=== PATIENT | male | born 1960 | race Caucasian/White ===

== ENCOUNTER → 2017-09-29 06:34 | Outpatient (CLI) | payer OTHER, SELFPAY ==
--- NOTE | 2017-09-29 | DI.MRI.S_ITS ---
PROCEDURE: MR KNEE RT WO CON INDICATIONS: RIGHT KNEE PAIN TECHNIQUE: Noncontrast sagittal PD fast spin echo and T2 fast spin echo with fat saturation, sagittal 3-D FLASH with fat saturation; coronal T1 spin echo and PD fast spin echo with fat saturation, and axial PD fast spin echo with fat saturation through the knee. COMPARISON: None. FINDINGS: Image quality: Diagnostic. Bones and joint: There is no acute fracture or dislocation. No suspicious osseous lesions are evident. There is a small knee joint effusion without associated Sosa's cyst. Lateral patellar subluxation is present. There is irregularity of the hyaline articular cartilage within the patellofemoral compartment with moderate to large full-thickness defects noted on the lateral patellar facet. Developing lateral patellar marginal osteophytes are present. There are areas of degenerative cystic change and reactive marrow edema along the lateral patellar facet. Smaller defects of the hyaline articular cartilage may be present involving the lateral margin of the trochlear groove. The hyaline articular cartilage within the medial and lateral tibiofemoral compartments appears to be within normal limits. Cruciate ligaments: The anterior and posterior cruciate ligaments are intact. Menisci: There is an oblique tear identified involving the junction of the body and posterior horn of the medial meniscus that involves the periphery and extends very close to the femoral articular surface (image 24, series 6). No displaced medial meniscal tears are evident. Degenerative signal along the body and posterior horn is incidentally noted. The lateral meniscus is intact and otherwise within normal limits. Medial structures: The medial collateral ligament is intact. The semimembranosus tendon insertion is intact. The imaged portions of the pes anserinus tendons are unremarkable. No significant fluid is contained within the pes anserinus bursa. Lateral structures: The popliteal tendon is intact. The lateral collateral ligament proper (fibular collateral ligament) and the proximal tibiofibular ligaments are intact. The distal aspect of the biceps femoris tendon and the iliotibial band are intact. Anterior structures: The distal aspect of the quadriceps tendon is within normal limits. The proximal-lateral margin of the patellar tendon is noted to extend over the anterior aspect of the lateral femoral condyle. There is prominent edema within the infrapatellar fat-pad that located at this location. There is thickening and increased signal involving the proximal aspect of this portion of the patellar tendon. IMPRESSION: 1. Small oblique tear involving the junction of the body and posterior horn of the medial meniscus with questionable femoral articular surface involvement. 2. Lateral patellar subluxation with prominent patellofemoral chondromalacia and mild proximal patellar tendinopathy. The lateral margin of the proximal patellar tendon extends over the anterior lateral femoral condyle. Please correlate clinically for lateral femoral condyle-patellar tendon friction syndrome. 3. Small knee joint effusion. Dictated by: Mathew Galarza M.D. on 09/29/2017 at 12:33 Approved by: Mathew Galarza M.D. on 09/29/2017 at 12:38
== END ==
PROVIDERS: Visit Provider Orthopaedic Surgery
DX: S83.241A Other tear of medial meniscus, current injury, right knee, initial encounter (principal); M25.461 Effusion, right knee
CPT/HCPCS: 73721

== ENCOUNTER 2017-12-11 06:35 | Day surgery (SDC) | payer OTHER, SELFPAY ==
[2017-11-29 16:43] VITALS: BMI 34.5
[2017-12-11] VITALS (11 sets, daily range): BP systolic 95–137; BP diastolic 57–87; PULSE 64–79; RESP 15–19; TEMP 36.1–36.7; O2SAT 16–99; BMI 34.5
[2017-12-11] MEDS: ACETAMINOPHEN 325 MG TABLET 975 MG PO (07:34)
[2017-12-11] MEDS: CELECOXIB 200 MG CAPSULE PO (07:35)
[2017-12-11] MEDS: PREGABALIN 75 MG CAPSULE PO (07:41)
[2017-12-11] MEDS: LACTATED RINGERS 1,000 ML 42 ML IV ×2 (07:46→09:08)
[2017-12-11] MEDS: fentaNYL 100 MCG/2 ML INJ IV (07:50)
[2017-12-11] MEDS: MIDAZOLAM 2 MG/2 ML VIAL IV (07:50)
--- NOTE | 2017-12-11 07:51 | PM.PREOP ---
Pre-operative Note Interval Note Pre-op Check: Yes History & Physical Reviewed by Physician and Yes Exam Performed Changes: No
--- NOTE | 2017-12-11 07:58 | SUR.PREOP ---
Block start time [0852] . Monitoring initiated and maintained throughout procedure. Oxygen and medications given per anesthesiologist instructions. Patient remained stable throughout procedure, no adverse reactions noted. Block end time []0856 .
[2017-12-11] MEDS: CEFAZOLIN 2 GM/100 ML FROZ.PIGGY IV (08:01)
--- NOTE | 2017-12-11 08:39 | SUR.OPER ---
Supine on padded OR bed. Pillow under head, arms secured on padded armboards <90 degree abduction. Safety belt across torso. Non-operative leg secured with tape over blanket over lower leg. Operative leg secured in DeMayo/Edmundo positioner. Foam padded brace at thigh of operative leg.
[2017-12-11] MEDS: BUPIVACAINE LIPOSOME 266 MG/20 ML VIAL INJ (08:47)
[2017-12-11] MEDS: BUPIVACAINE 0.25% W/ EPI VIAL 50 ML INJ (08:47)
[2017-12-11] MEDS: MORPHINE 4 MG/ML INJ INJ (08:50)
--- NOTE | 2017-12-11 09:56 | P.OP_ITS ---
Operative Date/Time/Diagnoses Date of procedure: 12/11/17 Time of procedure: 09:30 Pre-op diagnosis: Right patellofemoral osteoarthritis and instability Post-op diagnosis: same Procedure & Clinicians Procedure: 1. Right patellofemoral unicompartmental arthroplasty 2. 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 He has agreed to patellofemoral unicompartmental arthroplasty after discussion of risks benefits and alternatives. Risks discussed included but were not limited to: Failure to improve, infection, nerve damage, stiffness, deep venous thrombosis, pulmonary embolism, stroke, myocardial infarction, permanent paralysis and . Surgeon: Robb Clement Wardrobe Manager: Shoshana Bonner Click Yes if Unassisted: No Anesthesia Type: General, Peripheral nerve block and Local Operative Notes Findings: Severe lateral patellar tracking and patellofemoral degenerative change. Closure Type: primary Specimen(s): none sent Implants & Drains: Implants used in this procedure were manufactured by the [employer] and [employer] and included a Journey Oxinium trochlear component size medium right knee and a Aaliyah II resurfacing patellar component 35 mm round. Applied: implant(s) Estimated Blood Loss (mL): 25 Blood products transfused: none Tourniquet time (min): 42 Procedure in detail: The patient was seen in the pre-operative area, where the patient identified the right knee as the operative site and this was marked with my initials. The patient received pre-operative antibiotics, and was taken to the operating room and placed on the operative table in the supine position. After satisfactory anesthesia, a inspector timers out was performed. The right leg was encircled with a tourniquet about the proximal thigh, and the leg was prepared from the toes to the tourniquet with ChloroPrep in the usual fashion and draped through sterile drapes. The leg was elevated and exsanguinated with Eschmark bandage and the tourniquet inflated to 250 mmHg pressure. The knee was approached through an approximately 18 cm incision centered over the patella and carried into the knee through a medial parapatellar arthrotomy. The rotational landmarks of Ashley's line and the transepicondylar axis were marked on the femur with a marking pen, and an intramedullary guide hole for the femur created. The anterior femoral cut was made using Whitesides line and the trans epicondylar axis as a guide. The appropriate size was chosen and the router used to create the trochlear groove. For the holes for the lugs were then drilled. The trial femoral component was placed. The patella was cut to accommodate a 35 mm prosthetic. There was still mild lateral patellar tracking however the patella did not dislocate. To improve the tracking I performed a lateral release using the ?pie crust? technique. This improved the patellar tracking. The trials were removed and the bone treated with pulsatile lavage. Cement was impacted into position and the prosthetics placed. Excess cement was removed during and after cement curing. While the cement cured, 50 mL of 0.25 % Marcaine mixed with 20 ml Exparel and 4 mg of morphine was injected in the capsule and subcutaneous tissues for post-operative pain control. The knee was copiously irrigated and the tourniquet deflated. Hemostasis was obtained. The capsule was closed with interrupted # 2 polyester suture. In this stage the vastus medialis obliquus was advanced to provide additional patellar realignment. The position of the patella was central throughout the range of motion after this closure. The subcutaneous layer was closed with 3-0 Vicryl, and the skin with a running 3-0 V-Lock suture and SteriStrips. An Aquacel Ag dressing was applied and the patient was taken to recovery having tolerated the procedure well. Complications: none Condition: stable Disposition: PACU Plan for aftercare: The patient will be allowed to weightbear as tolerated. He will be evaluated later in the afternoon potentially discharged today. It is likely he will be discharged tomorrow if he does not meet criteria this afternoon.
--- NOTE | 2017-12-11 10:09 | DI.RAD.S_ITS ---
PROCEDURE: XR KNEE RT 1TO2V INDICATIONS: RIGHT UNI KNEE TECHNIQUE: 2 view(s) of the knee acquired. COMPARISON: [facility], MR, MR KNEE RT WO CON, 09/29/2017, 11:22. FINDINGS: Bones: Patient is status post knee arthroplasty of the patellofemoral joint. Hardware components are in expected positions. Visualized bony structures are intact. Soft tissues: Overlying postoperative changes are noted. IMPRESSION: Normal postoperative examination. Dictated by: Yair Arguelles M.D. on 12/11/2017 at 11:20 Approved by: Yair Arguelles M.D. on 12/11/2017 at 11:20
--- NOTE | 2017-12-11 10:15 | SUR.PHASEI ---
STABLE PACU STAY TO ACUTE CARE ON ROOM AIR.
--- NOTE | 2017-12-11 10:29 | PC.NURSE ---
Day shift: On unit at approx 1020 from PACU. VS WNL. A&Ox3. Tolerating liquids. Denies being hungry. Rt knee LOW wrapped and CDI. Sensation present BLE's. PPP and good cap refill. Oriented to room and call light. Spouse at bedside. Agrees to not get OOB w/o help.
--- NOTE | 2017-12-11 10:56 | PC.NURSE ---
Day shift: Per convo w/ ortho PA ok to not give IV fluids. Told PA good PO intake and per APPARATUS REPAIR MECHANIC Pt had 1700ml IV fluids already. Pt plans to d/c later today. PA will get oxycodone script to Pt's spouse soon. Will d/c the IV fluid.
[2017-12-11] MEDS: IBUPROFEN 600 MG TABLET PO (11:22)
[2017-12-11] MEDS: OXYCODONE IR 5 MG TABLET PO (11:24)
--- NOTE | 2017-12-11 13:51 | PM.PNPO.1 ---
Subjective Date Patient Seen: 12/11/17 Time Patient Seen: 12:15 Interval history: Patient seen postop day #0 status post right unicompartmental knee replacement. Patient doing well pain is controlled by oxycodone and ibuprofen. He has not been up with PT yet but would like to go home today Exam Vital Signs (past 8 hours): - 12/11/17 07:19 12/11/17 09:45 12/11/17 09:49 Temperature 97.0 F L 97.7 F Pulse Rate 79 70 72 Respiratory Rate 16 15 18 Blood Pressure 137/87 H 101/57 L 95/64 Pulse Oximetry 16 L 92 96 12/11/17 09:55 12/11/17 10:01 12/11/17 10:04 Temperature 97.9 F Pulse Rate 71 69 68 Respiratory Rate 16 18 19 Blood Pressure 102/66 98/63 97/64 Pulse Oximetry 98 99 97 12/11/17 10:11 12/11/17 10:20 12/11/17 10:50 Temperature 97.3 F L 98 F Pulse Rate 67 68 64 Respiratory Rate 19 16 16 Blood Pressure 104/69 130/80 H 111/76 Pulse Oximetry 97 96 99 12/11/17 11:20 12/11/17 12:37 Temperature 98.1 F Pulse Rate 68 67 Respiratory Rate 16 16 Blood Pressure 117/66 122/81 H Pulse Oximetry 98 99 Oxygen Delivery Method Room Air Oxygen Flow Rate 0 Narrative Exam Narrative: The patient is well-developed and nourished in no acute distress. Patient is alert and oriented x3. On examination calf is non-tender and surgical dressing is clean dry and intact. Ankle has full range of motion and he has 2+ pulses. Assessment & Plan Post-op (1) Osteoarthritis of right knee: Current Visit: Yes Status: Acute Postoperative Procedures Operation Date: 12/11/17 07:45 Actual Procedures Side Surgeon p Patello-femoral uni, Patella realignment Right Robb Clement MD Patient is postop day 0 status post right uni-knee replacement. He is doing well and he is cleared by physical therapy may be discharged after that. He has been given his oxycodone prescription and Vistaril was called in to his pharmacy. He will take aspirin 81 mg twice a day for 6 weeks for DVT prophylaxis. Followup in the office in 10 days. All questions answered at time of exam. Time Spent With Patient less than 15 minutes Quality VTE Deep Vein Thrombosis/Pulmonary Embolism Present on Admission: No
--- NOTE | 2017-12-11 14:05 | PT.IIE ---
Current Diagnoses Unilateral primary osteoarthritis, right knee (12/11/17) Unilateral post-traumatic osteoarthritis, right knee (12/11/17) Surgery Performed Operation Date: 12/11/17 07:45 Actual Procedures p Patello-femoral uni, Patella realignment(Right) - Robb Clement MD Medical History (Last Updated 11/29/17 @ 17:00 by Maxine Lawrence RN) BENTLEY (dyspnea on exertion) (Acute) DVT (deep venous thrombosis) (Acute ~2010) Essential hypertension (Acute) Former smoker (Acute) History of left heart catheterization (Acute) NSVT (nonsustained ventricular tachycardia) (Acute) Pernicious anemia (Acute) Post-traumatic osteoarthritis of right knee (Acute) SVT (supraventricular tachycardia) (Acute ~2014) Physical Therapy Inpatient Evaluation/Re-Eval M1 PT/OT-IP Prior Functional Status Start: 12/11/17 15:45 Freq: NEEDED Status: Active Protocol: Document 12/11/17 14:05 MDD (Rec: 12/11/17 15:53 MDD [id number]) Medical Review Prior Functional Status Medical History Reviewed Yes Communication nml Mobility and Gait independent Activities of Daily Living and IADL's independent Social History Household Members spouse Living Arrangements House Number of Floors (Floors) One Floor Number of Stairs To Enter/Railing? 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 [employer] M2 PT-IP Current Condition Start: 12/11/17 15:45 Freq: NEEDED Status: Active Protocol: Document 12/11/17 14:05 MDD (Rec: 12/11/17 15:53 MDD [id number]) Physical Therapy Current Condition Current Condition Evaluation Date 12/11/17 Treatment Diagnosis s/p R TKA Onset Date 12/11/17 Weight Bearing Status Weight Bearing Status Weight Bear as Tolerated M3 PT-IP Subjective Start: 12/11/17 15:45 Freq: NEEDED Status: Active Protocol: Document 12/11/17 14:05 MDD (Rec: 12/11/17 15:53 MDD [id number]) Subjective Physical Therapy Visit Type Type Initial Evaluation Visit Start Time 13:30 Visit Stop Time 14:05 Total Visit Minutes 35 Number of PATTERN GRADER CUTTER Visits 0 Physical Therapy Visit Comments Patient Comments Pt is very motivated to get up and to go home today if possible. Therapy Pain Assessment Pain Present Pain Present Denied Pain M4 PT-IP Mobility and Gait Start: 12/11/17 15:45 Freq: NEEDED Status: Active Protocol: Document 12/11/17 14:05 MDD (Rec: 12/11/17 15:53 [facility] [id number]) PT-Bed Mobility Assessment Rolling Type of Rolling Roll to Right Level of Assist Independent Supine to Sit Supine to Sit Independent Sit to Supine Sit to Supine Independent Scooting Scooting to Edge of Bed Independent Scooting Up and Down in Bed Independent PT-Transfer Assessment Sit to and From Stand Sit to and from Stand Standby Assistance Equipment Transfer Assistive Device Gait Belt Front Wheeled Walker Gait Assessment Gait Gait Assistance Required: Standby Assistance Distance (Feet) (feet) 276 Assistive Devices Assistive Device Gait Belt Front Wheeled Walker Gait Deviations General Gait Pattern Antalgic Step-to Gait Stair Climbing Assessment Evaluation Level of Assist On Stairs Standby Assistance Devices Stair Climbing Assistive Devices Left Railing Technique/Endurance Stair Climbing Direction Ascend and Descend Stair Climbing Technique Step to Step Number of Steps Climbed 3 Query Text: Stair Climbing Set # Repetitions (reps) 1 Comments Stair Climbing Comments sidestepping with both hands on L railing PT-Balance Assessment Sitting Balance and Reactions Static Sitting Balance Ability Normal Dynamic Sitting Balance Ability Normal Standing Balance and Reactions Static Standing Balance Ability Good Dynamic Standing Balance Ability Good M5 PT-IP Objective Assessments Start: 12/11/17 15:45 Freq: NEEDED Status: Active Protocol: Document 12/11/17 14:05 MDD (Rec: 12/11/17 15:53 [facility] [id number]) Orientation Orientation/Cognition Level of Alertness Alert Orientation Name Age Birthday Month Date Year Day of Week Place Situation Language Function Ability No Deficits Noted Safety Awareness Understands Safety Issues Memory Description No Deficits Noted Gross Range of Motion Lower Extremity ROM Assessment Within Functional Limits Strength Lower Extremity Strength Assessment Within Functional Limits Coordination Assessment Gross Coordination Gross Coordination WNL Sensation Assessment Sensation Gross Sensation WNL M6 PT-IP Treatment Start: 12/11/17 15:45 Freq: NEEDED Status: Active Protocol: Document 12/11/17 14:05 MDD (Rec: 12/11/17 15:53 [facility] [id number]) Physical Therapy Treatment Exercises Exercises Ankle Pumps Gluteal Sets Quad Sets Heel Slides Straight Leg Raises Supine Hip Abduction Short Arc Quads Knee ROM Measurement -12 to 65 Education Education Provided Precautions Weight Bearing Status Post-Op Packet Safety M7 PT-IP Assessment and Plan Start: 12/11/17 15:45 Freq: NEEDED Status: Active Protocol: Document 12/11/17 14:05 MDD (Rec: 12/11/17 15:53 MDD [id number]) PT Summary Assessment and Plan Potential Rehabilitation Potential Excellent Status of Condition at Evaluation Stable Summary Impairments Gait Activity Tolerance Progress Towards Goals Progressing Toward Goals Safe For Discharge Goals Met Assessment Summary Pt demonstrates independence with bed mobility, transfers and gait today. Demonstrates ability to safely ascend/ descend 3 steps using L hand railing. Considered safe for d/c when medically appropriate . Goals Bed Mobility Goal Independent Transfer Goal Independent Gait Goal Independent Gait Distance 150 Other Goals Ascend/Descend 2 steps with L hand railing. Days to Meet Goals 2 Frequency of Treatment Frequency Of Treatment Discharge Recommendations To Nursing Amount of Assist Needed Independent Discharge Recommendations PT Discharge Recommendations Home Outpatient PT Other Discharge Recommendations Pt is planning on attending outpatient PT in [facility]. Will call to set-up appointment when he gets home.
--- NOTE | 2017-12-11 14:20 | PC.NURSE ---
Day shift: Pt d/c'd by . Pt wants to go home as well. LOW wrapped and CDI knee. Sensation present. Pain controlled. OK'd to go home by PT. Pt states he has nausea but this is a chronic condition. Paperwork done and signed. Questioned answered. Pt's spouse will be driving him home. Pt also has all personal belongings.
== END 2017-12-11 14:40 | disposition home or self-care (01) ==
LOC: OR 06:38 → AC 07:10 → OR 11:43 → AC 12:05
PROVIDERS: PCP Family Medicine; Visit Provider Orthopaedic Surgery
PROC: (CPT 27446; principal; 2017-12-11 07:45)
DX: M17.11 Unilateral primary osteoarthritis, right knee (principal); M25.361 Other instability, right knee; S83.241A Other tear of medial meniscus, current injury, right knee, initial encounter
CPT/HCPCS: 27446; 27422; 73560; 97116; 97161; C1776; C9290; J0690; J2250; J2270; J2704; J3010

== ENCOUNTER → 2018-04-09 13:00 | Outpatient (CLI) | payer OTHER, SELFPAY ==
[2017-12-11 10:33] VITALS: BMI 34.5
== END ==
PROVIDERS: PCP Family Medicine
DX: Z23 Encounter for immunization (principal)
CPT/HCPCS: 90471; 90686

== ENCOUNTER → 2019-04-19 10:28 | Outpatient (CLI) | payer OTHER, SELFPAY ==
[2017-12-11 10:33] VITALS: BMI 34.5
== END ==
PROVIDERS: PCP Family Medicine
DX: Z23 Encounter for immunization (principal)
CPT/HCPCS: 90471; 90686

== ENCOUNTER → 2020-03-16 13:54 | Outpatient (CLI) | payer OTHER, SELFPAY ==
[2017-12-11 10:33] VITALS: BMI 34.5
[2020-03-16 14:49] LABS: COVID19 -Nasal RAPID Negative (Negative)
== END ==
PROVIDERS: PCP Family Medicine; Visit Provider Physician Assistant
DX: Z11.59 Encounter for screening for other viral diseases (principal)
CPT/HCPCS: 87635

== ENCOUNTER → 2024-06-14 10:35 | Outpatient (CLI) | payer OTHER, SELFPAY ==
[2017-12-11 10:33] VITALS: BMI 34.5
--- NOTE | 2024-06-14 10:37 | DI.RAD.S_ITS ---
PROCEDURE: FL BARIUM SWALLOW INDICATIONS: HIATAL HERNIA,IRON DEFICIENCY ANEMIA COMPARISON: None. FINDINGS: The barium meal was ingested with little difficulty. There was narrowing distal esophagus with what appears to be approximate distal narrowing to approximately 8 mm. There significant tertiary contractions and irritability of the distal esophagus on 1 swallow sequence. There was a transient wiff of reflux from the stomach to the distal esophageal narrowing, but really no significant reflux. There is narrowing of the stomach in the proximal 3rd with what appears to be residual of a gastric wrap procedure. The patient did not take the calibrated barium pill as he has significant discomfort with pills. Morphology: Air-contrast images demonstrate normal mucosal morphology. Single contrast views show no esophageal strictures, extrinsic mass effects, or diverticula. Limited images of the stomach demonstrate normal appearance with some fundal surgical changes as noted above. IMPRESSION: Irritable esophagus with distal esophageal narrowing, no significant reflux. Previous surgical intervention probably a gastric wrap for reflux. Dictated by: John Boles M.D. on 06/14/2024 at 15:05 Approved by: John Boles M.D. on 06/14/2024 at 15:20
== END ==
PROVIDERS: PCP Family Medicine; Referring Provider Surgery; Visit Provider Surgery
DX: K44.9 Diaphragmatic hernia without obstruction or gangrene (principal); D50.9 Iron deficiency anemia, unspecified; K22.2 Esophageal obstruction
CPT/HCPCS: 74220